=== PATIENT | female | born 1970 | race Caucasian/White ===

== ENCOUNTER 2025-05-16 17:01 | Emergency (ER) | payer SELFPAY ==
[~2025-05-16] VITALS: Ht 162.6 cm; Wt 100.0 kg
[2025-05-16 17:03] VITALS: O2SAT 99
[2025-05-16] MEDS: HYDROCODONE/ACETAMINOPHEN 10/325MG TABLET PO ONE (18:41)
[2025-05-16] MEDS ORDERED: HYDR-4001 MT (19:25)
[2025-05-16 21:03] VITALS: BP 154/67; PULSE 79; RESP 18; TEMP 36.7; O2SAT 97
== END 2025-05-16 21:04 | disposition home or self-care (01) ==
LOC: ER 17:01
DX: S42.291A Other displaced fracture of upper end of right humerus, initial encounter for closed fracture (principal); I10 Essential (primary) hypertension; W18.39XA Other fall on same level, initial encounter; Y93.89 Activity, other specified; Y92.89 Other specified places as the place of occurrence of the external cause; Y99.8 Other external cause status
CPT/HCPCS: 73030; 73060; 73080; 73110; 99284; A4565